=== PATIENT | male | born 1995 | race Caucasian/White ===

== ENCOUNTER → 2017-10-05 | Outpatient (CLI) | payer BC | LOC: COL.RAD 14:29 | DX: N50.89 Other specified disorders of the male genital organs (principal); Z98.890 Other specified postprocedural states ==

== ENCOUNTER → 2017-10-10 | Outpatient (CLI) | payer BC | LOC: COL.RAD 15:51 | DX: N50.9 Disorder of male genital organs, unspecified (principal); N50.1 Vascular disorders of male genital organs ==

== ENCOUNTER → 2020-04-22 | Outpatient (CLI) | payer BC, OTHER | LOC: COL.RAD 13:34 | DX: S73.102A Unspecified sprain of left hip, initial encounter (principal); M86.8X8 Other osteomyelitis, other site | CPT/HCPCS: A9585; J3301; Q9967 ==